=== PATIENT | female | born 1940 | race Caucasian/White ===

== ENCOUNTER → 2019-03-08 | Outpatient (CLI) | payer MEDICARE ==
[~2019-03-08] MED LIST: AMLO10TA4 PO; BENA40TA3 PO; BIMA2.5D OP; BRIN8DRO OP; HYDR50TA6 PO; MELO7.5T29 PO; METF500T16 PO; OMEP40CA45 PO; normodyne
[2019-03-08 14:55] LABS: CALCIUM 9.6 mg/dL (8.5-10.1); CREATININE 1.2 mg/dL (0.6-1.0); GFR 43.7; PHOSPHORUS 3.1 mg/dL (2.6-4.7); POTASSIUM 4.1 mmol/L (3.5-5.1)
== END | disposition home or self-care (01) ==
LOC: LAB 14:14
PROVIDERS: ATTEND Nurse Practitioner Adult Health
DX: N18.3 Chronic kidney disease, stage 3 (moderate) (principal)
CPT/HCPCS: 36415; 80069

== ENCOUNTER → 2019-05-14 | Outpatient (CLI) | payer MEDICARE ==
[2019-05-14 11:35] LABS: HEMATOCRIT 37.7 % (36.0-47.0); HEMOGLOBIN 12.1 g/dL (12.0-15.5)
[2019-05-14 11:39] LABS: ALBUMIN 3.9 g/dL (3.4-5.0); CALCIUM 9.9 mg/dL (8.5-10.1); CREATININE 1.5 mg/dL (0.6-1.0); GFR 33.7; PHOSPHORUS 3.2 mg/dL (2.6-4.7)
[2019-05-15 00:06] LABS: CALCIUM PTH 10.7 mg/dL (8.7-10.3); CREATININE PTH 1.51 mg/dL (0.57-1.00); PTH INTACT 112 pg/mL (15-65)
[2019-05-15 13:31] LABS: CREATININE,RANDOM URINE 224.3 mg/dL (Not Establ.)
== END | disposition home or self-care (01) ==
LOC: LAB 10:33
PROVIDERS: ATTEND Nurse Practitioner Adult Health
DX: I12.9 Hypertensive chronic kidney disease with stage 1 through stage 4 chronic kidney disease, or unspecified chronic kidney disease (principal); E11.22 Type 2 diabetes mellitus with diabetic chronic kidney disease; N18.3 Chronic kidney disease, stage 3 (moderate); R80.9 Proteinuria, unspecified; E55.9 Vitamin D deficiency, unspecified; E21.1 Secondary hyperparathyroidism, not elsewhere classified; Z79.1 Long term (current) use of non-steroidal anti-inflammatories (NSAID)
CPT/HCPCS: 36415; 80069; 82306; 82570; 83970; 84156; 85014; 85018

== ENCOUNTER → 2019-05-27 | Outpatient (CLI) | payer MEDICARE ==
[2019-05-27 13:33] LABS: ALBUMIN 3.9 g/dL (3.4-5.0); CALCIUM 9.6 mg/dL (8.5-10.1); CREATININE 1.4 mg/dL (0.6-1.0); GFR 36.5; PHOSPHORUS 3.1 mg/dL (2.6-4.7); POTASSIUM 4.2 mmol/L (3.5-5.1)
== END | disposition home or self-care (01) ==
LOC: LAB 11:46
PROVIDERS: ATTEND Internal Medicine Nephrology
DX: E11.22 Type 2 diabetes mellitus with diabetic chronic kidney disease (principal); N18.3 Chronic kidney disease, stage 3 (moderate)
CPT/HCPCS: 36415; 80069

== ENCOUNTER → 2019-11-26 | Outpatient (CLI) | payer MEDICARE ==
[2019-11-26 14:32] LABS: ALBUMIN 4.1 g/dL (3.4-5.0); CALCIUM 9.6 mg/dL (8.5-10.1); CREATININE 1.6 mg/dL (0.6-1.0); GFR 31.3; PHOSPHORUS 3.5 mg/dL (2.6-4.7); POTASSIUM 3.8 mmol/L (3.5-5.1)
== END | disposition home or self-care (01) ==
LOC: LAB 13:43
PROVIDERS: ATTEND Internal Medicine Nephrology
DX: I12.9 Hypertensive chronic kidney disease with stage 1 through stage 4 chronic kidney disease, or unspecified chronic kidney disease (principal); N18.3 Chronic kidney disease, stage 3 (moderate); E11.22 Type 2 diabetes mellitus with diabetic chronic kidney disease; R80.9 Proteinuria, unspecified; E11.9 Type 2 diabetes mellitus without complications; E55.9 Vitamin D deficiency, unspecified; E21.1 Secondary hyperparathyroidism, not elsewhere classified; Z79.4 Long term (current) use of insulin; Z68.34 Body mass index [BMI] 34.0-34.9, adult; Z79.1 Long term (current) use of non-steroidal anti-inflammatories (NSAID)
CPT/HCPCS: 36415; 80069; 82306

== ENCOUNTER → 2019-12-20 | Outpatient (CLI) | payer MEDICARE ==
[2019-12-20 12:23] LABS: ALBUMIN 3.9 g/dL (3.4-5.0); CALCIUM 9.9 mg/dL (8.5-10.1); CREATININE 1.5 mg/dL (0.6-1.0); GFR 33.7; PHOSPHORUS 3.2 mg/dL (2.6-4.7); POTASSIUM 4.5 mmol/L (3.5-5.1)
== END | disposition home or self-care (01) ==
LOC: LAB 11:32
PROVIDERS: ATTEND Nurse Practitioner Adult Health
DX: I12.9 Hypertensive chronic kidney disease with stage 1 through stage 4 chronic kidney disease, or unspecified chronic kidney disease (principal); N18.30 Chronic kidney disease, stage 3 unspecified; E11.22 Type 2 diabetes mellitus with diabetic chronic kidney disease; R80.9 Proteinuria, unspecified; E55.9 Vitamin D deficiency, unspecified; E21.1 Secondary hyperparathyroidism, not elsewhere classified; Z79.1 Long term (current) use of non-steroidal anti-inflammatories (NSAID); Z79.4 Long term (current) use of insulin; Z68.34 Body mass index [BMI] 34.0-34.9, adult
CPT/HCPCS: 36415; 80069

== ENCOUNTER → 2020-06-09 | Outpatient (CLI) | payer MEDICARE ==
[~2020-06-09] MED LIST changes: -HYDR50TA6 PO; +HYDR50TA9 PO; +LABETALOL PO; +METF-658 PO; +[UNRECOGNIZED DRUG - OTHER] PO
== END ==
LOC: LAB 13:40
PROVIDERS: ATTEND Nurse Anesthetist, Certified Registered
DX: Z01.812 Encounter for preprocedural laboratory examination (principal); Z20.822 Contact with and (suspected) exposure to COVID-19
CPT/HCPCS: U0003

== ENCOUNTER → 2020-06-12 | Day surgery (SDC) | payer MEDICARE ==
[~2020-06-12] MED LIST changes: +IPRATRPIUM/ALBUTEROL 0.5/2.5MG 3 ML NEBU. NEB PRN; +IV NORMAL SALINE 500ML 500 ML IV ONE; +IV RINGERS SOLUTION,LACTATED 1,000 ML IV SCH; +LIDOCAINE 2% PF 5 ML VIAL. ONE; +MIDAZOLAM HCL PF 2 MG/2 ML VIAL. IV ONE; +ONDANSETRON PF 4 MG/2 ML VIAL. IV PRN; +PROPOFOL 10,000 MCG/ML (20ML) VIAL IV ONE
[2020-06-12 12:55] VITALS: BP 168/54
--- NOTE | 2020-06-16 16:06 | PATHOLOGY ---
[facility] Accession Number: [id number] . 01 Material submitted: . PART A: colon - TRANSVERSE COLON POLYP BIOPSY. Modifiers: transverse PART B: cecum - CECUM POLYP X2 HOT SHAVE PART C: colon - ASCENDING COLON POLYP X2 HOT SHAVE. Modifiers: ascending PART D: colon - DESCENDING COLON POLYP BIOPSY. Modifiers: descending . 01 Clinical history: . POSITIVE HEMOCCULT COLONOSCOPY . 02 Diagnosis: A. Colon biopsy, transverse colon polyp: - Tubular adenoma. . B. Colon biopsy, cecum polyp x2: - Tubular adenoma. . C. Colon biopsies, ascending colon polyp x2: - Tubular adenomas, one of which shows high grade dysplasia. . D. Colon biopsies, descending colon polyp: - Tubular adenoma. ([facility]; 06/16/2020) [facility] [place] 06/16/2020 1102 Local . 02 Comment: Sections of the ascending colon polyp biopsies reveal two tubular adenomas, one of which shows high-grade dysplasia. There is only one polyp identified within the cecal specimen, which is a tubular adenoma showing no high grade dysplasia or evidence of malignancy. The sections of the transverse colon and descending colon biopsies also reveal tubular adenomas showing no high grade dysplasia or evidence of malignancy. ([facility]; 06/16/2020) . 02 Electronically signed: . Kev Bonilla MD, Pathologist NPI- [id number] . 01 Gross description: . A. The specimen is received in formalin, labeled "Jessica Vincent, transverse colon polyp biopsy". Received is a segment of pale [place] tissue measuring 0.4 cm in maximum dimensions. The specimen is submitted entirely in cassette A1. . B. The specimen is received in formalin, labeled "Jessica Vincent, cecum polyp x2". Received is a segment of light [place] tissue measuring 0.6 cm in maximum dimensions. The surgical margin is inked and the segment is bisected. The specimen is submitted entirely in cassette B1. Upon careful inspection and filtration, no additional tissue is found remaining within the container. . C. The specimen is received in formalin, labeled "Jessica Vincent, ascending colon polyp x2". Received are four segments of pale [place] tissue ranging in size from 0.3-0.6 cm in maximum dimensions. The specimen is submitted entirely in cassette C1. . D. The specimen is received in formalin, labeled "Jessica Vincent, descending colon polyp biopsy". Received are two segments of pale [place] tissue measuring 0.2 and 0.3 cm in maximum dimensions. The specimen is submitted entirely in cassette D1. ([facility]; 06/15/2020) QAC/QAC 06/16/2020 0920 Local . 02 Pathologist provided ICD-10: D12.3, D12.0, D12.2, D12.4 . 02 CPT . 796485, 572052, 152828, [id number] Specimen Comment: A courtesy copy of this report has been sent to [phone], [phone] Specimen Comment: [id number] Specimen Comment: Report sent to / DR OLIVIA Performed at: 01 [facility] [address] [address], [place] [id number] MD Renny Garcia MD Phone: [phone] Performed at: 02 [facility] [address] [place], [place] [id number] MD Kev Bonilla MD Phone: [phone]
== END | disposition home or self-care (01) ==
LOC: SURG 10:53
PROVIDERS: ATTEND Internal Medicine Gastroenterology
DX: R19.5 Other fecal abnormalities (principal); K64.0 First degree hemorrhoids; D12.3 Benign neoplasm of transverse colon; D12.0 Benign neoplasm of cecum; D12.2 Benign neoplasm of ascending colon; D12.4 Benign neoplasm of descending colon; K63.89 Other specified diseases of intestine; K57.30 Diverticulosis of large intestine without perforation or abscess without bleeding; Z88.5 Allergy status to narcotic agent; I12.9 Hypertensive chronic kidney disease with stage 1 through stage 4 chronic kidney disease, or unspecified chronic kidney disease; E11.22 Type 2 diabetes mellitus with diabetic chronic kidney disease; N18.30 Chronic kidney disease, stage 3 unspecified; Z79.4 Long term (current) use of insulin; Z98.890 Other specified postprocedural states; Z79.1 Long term (current) use of non-steroidal anti-inflammatories (NSAID); Z79.899 Other long term (current) drug therapy
CPT/HCPCS: 45380; 45381; 45385; 82947; 88305; J2001; J2704; J7040

== ENCOUNTER → 2020-07-01 | Outpatient (CLI) | payer MEDICARE ==
[2020-06-12 12:55] VITALS: BP 168/54
[~2020-07-01] MED LIST changes: -IPRATRPIUM/ALBUTEROL 0.5/2.5MG 3 ML NEBU. NEB PRN; -IV NORMAL SALINE 500ML 500 ML IV ONE; -IV RINGERS SOLUTION,LACTATED 1,000 ML IV SCH; -LIDOCAINE 2% PF 5 ML VIAL. ONE; -MIDAZOLAM HCL PF 2 MG/2 ML VIAL. IV ONE; -ONDANSETRON PF 4 MG/2 ML VIAL. IV PRN; -PROPOFOL 10,000 MCG/ML (20ML) VIAL IV ONE
--- NOTE | 2020-07-01 13:19 | RAD ---
INDICATION: Screening for osteopenia/osteoporosis. Postmenopausal evaluation. COMPARISON: 06/27/2006 TECHNIQUE: Bone densitometry was performed through the lumbar spine and proximal femur. IMPRESSION: Lumbar Spine: BMD: 1.47 T-Score: 2.4 Range: Normal. Increased by 18 percent from prior. Proximal Femur: BMD: 0.66 T-Score: -2.4 Range: On the border between osteopenia and osteoporosis. Decreased by 13 percent from prior. World Health Organization Criteria for Bone Density: T-Score: > -1.0: Normal Range < -1.0 to -2.5: Osteopenic Range < -2.5: Osteoporotic Range Electronically signed by: Lc Mcdaniel MD (07/01/2020 1:16 PM) [id number]
--- NOTE | 2020-07-03 18:32 | RAD ---
DATE: 07/01/2020 EXAM: DIGITAL SCREEN BILAT W/CAD HISTORY: Screening COMPARISON: 06/05/2018, 03/30/2016 This study was interpreted with the benefit of Computerized Aided Detection (CAD). Breast Density: SCATTERED The breast parenchyma shows scattered fibroglandular densities. Breast parenchyma level B. FINDINGS: No mass, suspicious calcification, or architectural distortion in either breast. IMPRESSION: No evidence of malignancy. BI-RADS CATEGORY: 1 NEGATIVE RECOMMENDED FOLLOW-UP: 12M 12 MONTH FOLLOW-UP PQRS compliance statement: Patient information was entered into a reminder system with a target due date for the next mammogram. Mammography is a sensitive method for finding small breast cancers, but it does not detect them all and is not a substitute for careful clinical examination. A negative mammogram does not negate a clinically suspicious finding and should not result in delay in biopsying a clinically suspicious abnormality. "Our facility is accredited by the [employer] Mammography Program."
== END ==
LOC: MAMMO 12:37
PROVIDERS: ATTEND Family Medicine
DX: Z12.31 Encounter for screening mammogram for malignant neoplasm of breast (principal); Z13.820 Encounter for screening for osteoporosis; N25.81 Secondary hyperparathyroidism of renal origin; Z78.0 Asymptomatic menopausal state
CPT/HCPCS: 77067; 77080

== ENCOUNTER → 2021-08-13 | Outpatient (CLI) | payer MEDICARE ==
[2020-06-12 12:55] VITALS: BP 168/54
[~2021-08-13] MED LIST changes: -BENA40TA3 PO; +BENA40TA74 PO; -OMEP40CA45 PO; +OMEP40CA7 PO
--- NOTE | 2021-08-13 14:51 | RAD ---
EXAM: Bilateral lower extremity venous Doppler sonogram. HISTORY: Pain and swelling. TECHNIQUE: Rossi scale and color Doppler sonographic evaluation of the bilateral lower extremity veins with spectral waveform analysis was performed. FINDINGS: There is normal color flow, normal compressibility and there are normal spectral waveforms in the common femoral, superficial femoral, popliteal, posterior tibial and greater saphenous veins. The calf veins are not well seen due to soft tissue edema. IMPRESSION: No Doppler evidence of lower extremity deep venous thrombosis. Electronically signed by: Ree Tavarez MD (08/13/2021 2:49 PM) [id number]
== END ==
LOC: US 13:20
PROVIDERS: ATTEND Family Medicine
DX: R60.9 Edema, unspecified (principal); M79.89 Other specified soft tissue disorders
CPT/HCPCS: 93970